=== PATIENT | female | born 1930 | race Caucasian/White ===

== ENCOUNTER 2017-10-07 15:11 | Inpatient (IN) | payer MEDICARE ==
[~2017-10-07] VITALS: Ht 160 cm; Wt 58.1 kg
[2017-10-07] VITALS (11 sets, daily range): BP systolic 78–115; BP diastolic 50–72; PULSE 75–117; RESP 16–20; TEMP 97.9; O2SAT 95–98
[~2017-10-07 15:11] MED LIST: ASPI81 PO; CALC600T34 PO; ENAL20TA81 PO; ERGO50000 PO; GLIP5 PO; NEUR100C PO; OMEP20CA5 PO; PRAV80 PO; TIMO0.255 OU; VICO7.5T PO; Z.0.WALKERFRONT
[2017-10-07] MEDS ORDERED: SODIUM CHLOR 0.9% 1000 ML INJ 1,000 ML IV SCH (16:03)
--- NOTE | 2017-10-07 16:15 | PD ---
HPI Chief Complaint: General Weakness Time Seen by Provider: 15:51 Travel History International Travel<30 days: No Contact w/Intl Traveler<30days: No Traveled to known affect area: No History of Present Illness HPI 86yo F with PMH of HTN, DM, HLD presents to the ED with c/o decline in mental status and physical shape in the last 2 weeks. Daughter said onset seemed sudden and she is not acting like herself. Pt often refuses to eat or drink or walk. Pt seems catatonic and answers questions sometimes. Pt was seen at primary care physician's office on 10/04/17 and pt was started on bactrim as urine had a strong smell and send off to lab for culture. Pt also had diarrhea today. Daughter said she found her on the floor today. PFSH Past Medical History Arthritis: Yes (OSTEOARTHRITIS) Blood Disorders: No Anxiety: No Depression: No Cancer: Yes (SKIN CA-MELANOMA FACE) Cardiovascular Problems: Yes (ANGINA, ANKLE EDEMA) High Cholesterol: Yes Chemotherapy: No COPD: Yes Cerebrovascular Accident: Yes (TIA 1998 , 2004) Diabetes: Yes Diminished Hearing: No Endocrine: Yes Gastrointestinal Disorders: Yes (HIATIAL HERNIA, GASTRITIS) GERD: Yes Glaucoma: Yes Genitourinary: Yes (WEAR PESSARY FOR "DROPPED BLADDER") Hepatitis: No Hiatal Hernia: No Hypertension: Yes Immune Disorder: No Implanted Vascular Access Dvce: Yes Kidney Stones: Yes Musculoskeletal: Yes (OSTEOPOROSIS, "SPINE PROBLEMS") Neurologic: Yes Psychiatric: No Reproductive: No Respiratory: Yes Immunizations Current: Yes Radiation Therapy: No Thyroid Disease: No Menopausal: Yes Past Surgical History Body Medical Devices: PESSARY Gynecologic Surgery: Yes (D&C) Pacemaker: No Other Surgery: Yes (MULTIPLE MELANOMA REMOVALS) Social History Alcohol Use: No Tobacco Use: No Substance Use: No Allergies-Medications (Allergen,Severity, Reaction): Coded Allergies: amoxicillin (Verified Allergy, Unknown, 10/07/17) clavulanic acid (Verified Allergy, Unknown, 10/07/17) metoprolol (Verified Allergy, Unknown, 10/07/17) metronidazole (Verified Allergy, Unknown, 10/07/17) Reported Meds & Prescriptions Reported Meds & Active Scripts Active Reported Bactrim DS (Sulfamethoxazole-Trimethoprim) 800-160 Mg Tab 1 Tab PO BID Simvastatin 40 Mg Tab 40 Mg PO HS Metformin (Metformin HCl) 500 Mg Tab 500 Mg PO BIDPC Glipizide 5 Mg Tab 5 Mg PO DAILY Take 30 minutes before a meal Enalapril (Enalapril Maleate) 20 Mg Tab 20 Mg PO DAILY Review of Systems Except as stated in HPI: all other systems reviewed are Neg Physical Exam Narrative GENERAL: 86yo F in mild distress. SKIN: Focused skin assessment warm/dry. HEAD: Atraumatic. Normocephalic. EYES: Pupils equal and round. No scleral icterus. No injection or drainage. ENT: No nasal bleeding or discharge. NECK: Trachea midline. No JVD. CARDIOVASCULAR: Regular rate and rhythm. No murmur appreciated. RESPIRATORY: No accessory muscle use. Clear to auscultation. Breath sounds equal bilaterally. GASTROINTESTINAL: Abdomen soft, +TTP LLQ. +TTP suprapubic region. MUSCULOSKELETAL: No obvious deformities. No clubbing. No cyanosis. No edema. NEUROLOGICAL: AAOx2. Opens eyes when talked to. Bilateral lower extremity seems weaker than upper extremity. Sensation intact. PSYCHIATRIC: Depressed. Data Data Last Documented VS Vital Signs Date Time Temp Pulse Resp B/P (MAP) Pulse Ox O2 Delivery O2 Flow Rate FiO2 10/07/17 19:20 85 20 10/07/17 19:04 78/50 (59) 95 Room Air 10/07/17 18:46 92 10/07/17 15:19 97.9 Orders Orders Electrocardiogram (10/07/17 16:03) Complete Blood Count With Diff (10/07/17 16:03) Comprehensive Metabolic Panel (10/07/17 16:03) Troponin I (10/07/17 16:03) Thyroid Stimulating Hormone (10/07/17 16:03) Urinalysis - C+S If Indicated (10/07/17 16:03) Ct Brain W/O Iv Contrast(Rout) (10/07/17 16:03) Sodium Chlor 0.9% 1000 Ml Inj (Ns 1000 M (10/07/17 16:03) Ct Abd/Pel W Iv Contrast(Rout) (10/07/17 ) Magnesium (Mg) (10/07/17 16:03) Sodium Chlor 0.9% 1000 Ml Inj (Ns 1000 M (10/07/17 18:00) Iodixanol 320 Inj (Rad Ct) (Visipaque 32 (10/07/17 18:26) Admit Order (Ed Use Only) (10/07/17 18:44) Sodium Chlor 0.9% 1000 Ml Inj (Ns 1000 M (10/07/17 18:45) Ciprofloxacin 400 Mg Premix (Cipro 400 M (10/07/17 19:00) Consult Cardiology (10/07/17 ) Labs Laboratory Tests Test 10/07/17 16:05 10/07/17 16:45 White Blood Count 10.3 TH/MM3 Red Blood Count 4.46 MIL/MM3 Hemoglobin 13.4 GM/DL Hematocrit 40.8 % Mean Corpuscular Volume 91.4 FL Mean Corpuscular Hemoglobin 30.2 PG Mean Corpuscular Hemoglobin Concent 33.0 % Red Cell Distribution Width 12.4 % Platelet Count 259 TH/MM3 Mean Platelet Volume 8.3 FL Neutrophils (%) (Auto) 81.2 % Lymphocytes (%) (Auto) 11.4 % Monocytes (%) (Auto) 6.3 % Eosinophils (%) (Auto) 0.3 % Basophils (%) (Auto) 0.8 % Neutrophils # (Auto) 8.4 TH/MM3 Lymphocytes # (Auto) 1.2 TH/MM3 Monocytes # (Auto) 0.6 TH/MM3 Eosinophils # (Auto) 0.0 TH/MM3 Basophils # (Auto) 0.1 TH/MM3 CBC Comment DIFF FINAL Differential Comment Blood Urea Nitrogen 40 MG/DL Creatinine 1.60 MG/DL Random Glucose 175 MG/DL Total Protein 6.5 GM/DL Albumin 3.0 GM/DL Calcium Level 12.3 MG/DL Magnesium Level 1.7 MG/DL Alkaline Phosphatase 97 U/L Aspartate Amino Transf (AST/SGOT) 30 U/L Alanine Aminotransferase (ALT/SGPT) 21 U/L Total Bilirubin 0.2 MG/DL Sodium Level 135 MEQ/L Potassium Level 4.4 MEQ/L Chloride Level 100 MEQ/L Carbon Dioxide Level 26.0 MEQ/L Anion Gap 9 MEQ/L Estimat Glomerular Filtration Rate 31 ML/MIN Protein Corrected Calcium 12.9 MG/DL Troponin I 0.87 NG/ML Thyroid Stimulating Hormone 3rd Gen 3.100 uIU/ML Urine Collection Type CATH Urine Color YELLOW Urine Turbidity CLEAR Urine pH 6.0 Urine Specific [place] 1.012 Urine Protein NEG mg/dL Urine Glucose (UA) NEG mg/dL Urine Ketones NEG mg/dL Urine Occult Blood NEG Urine Nitrite NEG Urine Bilirubin NEG Urine Leukocyte Esterase NEG Urine WBC 0-2 /hpf Urine Squamous Epithelial Cells 0-5 /hpf Urine Transitional Epithelial Cells 6-8 /hpf Urine Amorphous Sediment FEW Microscopic Urinalysis Comment CATH-CULT NOT IND Urine Collection Time 1645 [facility] Medical Decision Making Medical Screen Exam Complete: Yes Emergency Medical Condition: Yes Interpretation(s) EKG: NSR 90bpm. RBBB. Unchanged from prior. Differential Diagnosis Failure to thrive vs. Dementia vs. delirium vs. dehydration vs. diverticulitis vs. UTI Narrative Course 86yo F here with failure to thrive. Pt seems to have decline rather suddenly 2 weeks ago as per daughter. Daughter said she normally walks with encouragement. However, per previous note, pt seemed to be wheelchair bound. Pt is mildly tachycardic and hypotensive initially. Appears dehydrated, ordered NS IVF. Labs reviewed, no leukocytosis. Protein corrected calcium is 12.9. Pt given NS IVF, will give another liter. Troponin is elevated at 0.87. Pt is not complaining of chest pain or sob. Hemaprompt is positive. BUN/creatinine is elevated at 40/1.60 which is more elevated than baseline. TSH normal. Glucose 175. Normal anion gap. UA negative. I discussed with Dr. Pfeiffer who recommends that she be transfer to [facility] and he will consult. Discussed with Dr. Renae and accepted to his service. CT brain negative. CT a/p showed mild left sided colitis. Pt given cipro IV. Pt is receiving second liter of NS IVF. Critical Care Narrative Aggregate critical care time was 35 minutes. Time to perform other separately billable procedures was not included in the critical care time. My time did not include minutes spent treating any other patients simultaneously or on activities that did not directly contribute to the patient's treatment. The services I provided to this patient were to treat and/or prevent clinically significant deterioration that could result in: cardiovascular collapse or . I provided critical care services requiring my management, as noted below: Chart data review, documentation time, medication orders and management, vital sign assessments/reviewing monitor data, ordering and reviewing lab tests, ordering and interpreting/reviewing x- rays and diagnostic studies, care of the patient and discussion of the patient with the admitting physicians. Diagnosis Primary Impression: Elevated troponin Additional Impressions: Hypercalcemia Colitis Admitting Information Admitting Physician Requests: Admit Kathryn Odonnell DO Oct 07, 2017 16:14
[2017-10-07 16:23] LABS: AUTOMATED NEUTROPHIL # 8.4 TH/MM3 (1.8-7.7); BASOPHIL # 0.1 TH/MM3 (0-0.2); BASOPHIL % 0.8 % (0.0-2.0); EOSINOPHIL % 0.3 % (0.0-4.0); HEMATOCRIT 40.8 % (35.0-46.0); HEMOGLOBIN 13.4 GM/DL (11.6-15.3); LYMPH % 11.4 % (9.0-44.0); LYMPHOCYTE # 1.2 TH/MM3 (1.0-4.8); MEAN CELL VOLUME 91.4 FL (80.0-100.0); MEAN CORPUSCULAR HEMOGLOBIN 30.2 PG (27.0-34.0); MEAN PLATELET VOLUME 8.3 FL (7.0-11.0); MONO % 6.3 % (0.0-8.0); MONOCYTE # 0.6 TH/MM3 (0-0.9); NEUT % 81.2 % (16.0-70.0); PLATELET COUNT 259 TH/MM3 (150-450); RED BLOOD COUNT 4.46 MIL/MM3 (4.00-5.30); RED CELL DISTRIBUTION WIDTH 12.4 % (11.6-17.2); WHITE BLOOD COUNT 10.3 TH/MM3 (4.0-11.0)
[2017-10-07 16:50] LABS: BILIRUBIN, URINE NEG (NEG); BLOOD, URINE NEG (NEG); GLUCOSE,URINE NEG (NEG); KETONE, URINE NEG (NEG); NITRITE,URINE NEG (NEG); URINE LEUKOCYTE ESTERASE NEG (NEG)
[2017-10-07 16:53] LABS: URINE COLOR YELLOW (YELLW/STRAW)
[2017-10-07 16:55] LABS: AMORPHOUS SEDIMENT, URINE FEW; SQUAMOUS EPITHELIAL CELL URINE 0-5 /hpf (0-5); WBC, URINE 0-2 /hpf (0-5)
[2017-10-07 17:17] LABS: CALCIUM 12.3 MG/DL (8.5-10.1); CREATININE 1.6 MG/DL (0.50-1.00); MAGNESIUM 1.7 MG/DL (1.5-2.5); TOTAL BILIRUBIN ADULT 0.2 MG/DL (0.2-1.0); TOTAL PROTEIN 6.5 GM/DL (6.4-8.2)
[2017-10-07 17:19] LABS: CALCIUM-PROTEIN CORRECTED 12.9 MG/DL (8.5-10.1)
[2017-10-07 17:20] LABS: TROPONIN I 0.87 NG/ML (0.02-0.05)
[2017-10-07] MEDS ORDERED: SODIUM CHLOR 0.9% 1000 ML INJ 1,000 ML IV ONE ×2 (18:00→18:45)
[2017-10-07] MEDS ORDERED: IODIXANOL 320 MG/ML 10 ML VIAL (for Rad CT) IVCONTRAST ONE (18:26)
--- NOTE | 2017-10-07 18:31 | RADRPT ---
EXAM DATE/TIME: 10/07/2017 18:07 [facility] COMPARISON: No previous studies available for comparison. INDICATIONS : Weakness, poor appetite, altered mental status. RADIATION DOSE: 67.18 CTDIvol (mGy) ; Tabletop CT Head MEDICAL HISTORY : Cardiovascular disease. Hypercholesterolemia. Hypertension.CVA, Glaucoma, Hiatial hernia, gastritis, dropped bladder, osteoarthritis, melanoma, TIA SURGICAL HISTORY : Non listed ENCOUNTER: Initial ACUITY: 1 day PAIN SCALE: 0/10 LOCATION: cranial TECHNIQUE: Multiple contiguous axial images were obtained of the head. Using automated exposure control and adj ustment of the mA and/or kV according to patient size, radiation dose was kept as low as reasonably a chievable to obtain optimal diagnostic quality images. DICOM format image data is available electro nically for review and comparison. FINDINGS: CEREBRUM: The ventricles are normal for age. No evidence of midline shift, mass lesion, hemorrhage or acute in farction. No extra-axial fluid collections are seen. Chronic low attenuation in the periventricular white matter again noted. POSTERIOR FOSSA: The cerebellum and brainstem are intact. The 4th ventricle is midline. The cerebellopontine angle i s unremarkable. EXTRACRANIAL: There is debris in the right sphenoid air cell. SKULL: The calvaria is intact. No evidence of skull fracture. CONCLUSION: No acute intracranial abnormality. Chronic white matter changes and mild sinus disease. Yasir Sarmiento MD on October 07, 2017 at 18:28 Board Certified Radiologist. This report was verified electronically.
--- NOTE | 2017-10-07 18:43 | RADRPT ---
EXAM DATE/TIME: 10/07/2017 18:10 [facility] COMPARISON: No previous studies available for comparison. INDICATIONS : Abdominal pain, poor appetite,weakness for a week. IV CONTRAST: 50 cc Visipaque (iodixanol) IV ORAL CONTRAST: No oral contrast ingested. RADIATION DOSE: 8.89 CTDIvol (mGy) MEDICAL HISTORY : Cardiovascular disease. Hypercholesterolemia. Hypertension.Glaucoma, CVA, Hiatial hernia, gastritis, dropped bladder, osteoarthritis, melanoma, TIA SURGICAL HISTORY : None. None listed. ENCOUNTER: Initial ACUITY: 1 week PAIN SCALE: 5/10 LOCATION: Left lower quadrant TECHNIQUE: Volumetric scanning of the abdomen and pelvis was performed. Using automated exposure control and ad justment of the mA and/or kV according to patient size, radiation dose was kept as low as reasonably achievable to obtain optimal diagnostic quality images. DICOM format image data is available electro nically for review and comparison. FINDINGS: LOWER LUNGS: The visualized lower lungs are clear. LIVER: Homogeneous density without lesion. There is no dilation of the biliary tree. No calcified gallston es. SPLEEN: Normal size without lesion. PANCREAS: Within normal limits. KIDNEYS: There are a few small cysts of each kidney measuring up to 12 mm in size. No hydronephrosis. ADRENAL GLANDS: Within normal limits. VASCULAR: There is no aortic aneurysm. BOWEL/MESENTERY: There is a large hiatal hernia. There is mild wall thickening of the descending and sigmoid portions of the colon. No high-grade inflammatory changes are demonstrated. There are some scattered diverticu la but some of the wall thickening is not associated with diverticulosis. ABDOMINAL WALL: Within normal limits. RETROPERITONEUM: There is no lymphadenopathy. BLADDER: No wall thickening or mass. REPRODUCTIVE: Within normal limits. INGUINAL: There is no lymphadenopathy or hernia. MUSCULOSKELETAL: No acute bony abnormality demonstrated. CONCLUSION: 1. CT findings suggest mild left-sided colitis in the proper clinical setting, presumably infectious or inflammatory. No abscess, perforation or obstruction. 2. Large hiatal hernia. Yasir Sarmiento MD on October 07, 2017 at 18:38 Board Certified Radiologist. This report was verified electronically.
[2017-10-07] MEDS ORDERED: CIPROFLOXACIN 400 MG PREMIX 200 ML IV ONE (19:00)
[2017-10-07] MEDS ORDERED: BISACODYL 10 MG SUPP RECTAL PRN (19:30)
[2017-10-07] MEDS ORDERED: ONDANSETRON HCL 4 MG/2 ML VIAL IVP PRN (19:30)
[2017-10-07] MEDS ORDERED: ACETAMINOPHEN 325 MG TAB PO PRN (19:30)
[2017-10-07] MEDS ORDERED: MORPHINE SULFATE 2 MG/ML INJ IV PUSH PRN (19:30)
[2017-10-07] MEDS ORDERED: LACTULOSE SYRUP 20 GM/30 ML CUP PO PRN (19:30)
[2017-10-07] MEDS ORDERED: MAGNESIUM HYDROXIDE SUSP 30 ML CUP PO PRN (19:30)
[2017-10-07] MEDS ORDERED: SENNOSIDES 8.6 MG TAB PO PRN (19:30)
[2017-10-07] MEDS ORDERED: NALOXONE HCL 0.4 MG/ML AMP IV PUSH PRN (19:30)
[2017-10-07] MEDS ORDERED: SODIUM CHLORIDE 0.9% FLUSH 10 ML FLUSH IV FLUSH PRN (19:30)
--- NOTE | 2017-10-07 19:45 | HHI.HP ---
HPI Service [facility] Hospitalists Primary Care Physician Nikolas Soriano MD Admission Diagnosis Elevated troponin, hypercalcemia Chief Complaint: 2 weeks progressive lethargy ,weakness poor appetite Travel History International Travel<30 Days: No Contact w/Intl Traveler <30 Da: No Traveled to Known Affected Are: No History of Present Illness 86yo F with PMH of HTN, DM, HLD presents to the ED with c/o decline in mental status and physical shape in the last 2 weeks. Daughter said onset seemed sudden and she is not acting like herself. Pt often refuses to eat or drink or walk. Pt seems catatonic and answers questions sometimes. Daughter does say that approx 2 weeks ago did complain of mid back pain,denies chest pain ,SOB . Pt was seen at primary care physician's office on 10/04/17 and pt was started on bactrim as urine had a strong smell and send off to lab for culture. Pt also had diarrhea today. Daughter said she found her on the floor today. In er had ct abd showed mild colitis and did have evidence significant dehydration with increase calcium and bun /cr but also had positive troponin level and did have positive guiac . Will be admitted to [facility] cardiac follow up may also need GI. Review of Systems ROS Limitations: Altered Mental Status Constitutional: COMPLAINS OF: Fatigue, Change in appetite Gastrointestinal: COMPLAINS OF: Diarrhea Past Family Social History Past Medical History djd,melanoma removed from face angina hx edema hypertension TIA 99,2004 dm increase lipids COPD hiatal hernia pessary for drop bladder Past Surgical History pessary Reported Medications Glipizide 5 Mg Tab 5 Mg PO BIDHYPOGLYCEMIC 30 Days Reported Calcium 600 Mg Tab 600 Mg PO BID Aspirin 81 Mg Tab 81 Mg PO DAILY Vicodin Es 7.5/750 (Acetaminophen/Hydrocodone Bitart) 750 Mg/7.5 Mg Tab 1 Tab PO QID FOR PAIN Neurontin (Gabapentin) 100 Mg Cap 100 Mg PO TIDPRN Vitamin D / Drisdol 50,000 Units (Ergocalciferol) 50,000 Units Cap 1 Cap PO WEEKLY Timoptic (Timolol Maleate) 0.25 % Soln 1 Drop OU BID Prilosec 20 mg (Omeprazole) 20 Mg Capcr 20 Mg PO DAILY Vasotec (Enalapril Maleate) 20 Allergies: Coded Allergies: amoxicillin (Verified Allergy, Unknown, 10/07/17) clavulanic acid (Verified Allergy, Unknown, 10/07/17) metoprolol (Verified Allergy, Unknown, 10/07/17) metronidazole (Verified Allergy, Unknown, 10/07/17) Family History sister colon cancer Social History NS,ND Physical Exam Vital Signs Vital Signs Date Time Temp Pulse Resp B/P (MAP) Pulse Ox O2 Delivery O2 Flow Rate FiO2 10/07/17 18:46 86 16 84/52 (63) Room Air 92 10/07/17 18:01 90 16 107/72 (84) 95 10/07/17 15:19 97.9 117 18 97/57 (70) 98 Physical Exam GENERAL: no apparent distress. frail clinical dehydrated poor skin turgor SKIN: No rashes, ecchymoses or lesions. HEAD: Atraumatic. Normocephalic. No temporal or scalp tenderness. EYES: Pupils equal round and reactive. Extraocular motions intact. No scleral icterus. No injection or drainage. ENT: Nose without bleeding, purulent drainage or septal hematoma. Throat without erythema, tonsillar hypertrophy or exudate. Uvula midline. Airway patent. NECK: Trachea midline. No JVD or lymphadenopathy. Supple, nontender, no meningeal signs. CARDIOVASCULAR: Regular rate and rhythm without murmurs, gallops, or rubs. RESPIRATORY: Clear to auscultation. Breath sounds equal bilaterally. No wheezes , rales, or rhonchi. GASTROINTESTINAL: Abdomen soft, non-tender, nondistended. No hepato-splenomegaly , or palpable masses. No guarding.positive stool MUSCULOSKELETAL: Extremities without clubbing, cyanosis, or edema. No joint tenderness, effusion, or edema noted. No calf tenderness. Negative Homans sign bilaterally. NEUROLOGICAL: Awake shakes head yes or no. Cranial nerves II through XII intact. Motor and sensory grossly within normal limits. 3 out of 5 muscle strength in all muscle groups. Normal speech. Laboratory Laboratory Tests Test 10/07/17 16:05 10/07/17 16:45 White Blood Count 10.3 Red Blood Count 4.46 Hemoglobin 13.4 Hematocrit 40.8 Mean Corpuscular Volume 91.4 Mean Corpuscular Hemoglobin 30.2 Mean Corpuscular Hemoglobin Concent 33.0 Red Cell Distribution Width 12.4 Platelet Count 259 Mean Platelet Volume 8.3 Neutrophils (%) (Auto) 81.2 Lymphocytes (%) (Auto) 11.4 Monocytes (%) (Auto) 6.3 Eosinophils (%) (Auto) 0.3 Basophils (%) (Auto) 0.8 Neutrophils # (Auto) 8.4 Lymphocytes # (Auto) 1.2 Monocytes # (Auto) 0.6 Eosinophils # (Auto) 0.0 Basophils # (Auto) 0.1 CBC Comment DIFF FINAL Differential Comment Blood Urea Nitrogen 40 Creatinine 1.60 Random Glucose 175 Total Protein 6.5 Albumin 3.0 Calcium Level 12.3 Magnesium Level 1.7 Alkaline Phosphatase 97 Aspartate Amino Transf (AST/SGOT) 30 Alanine Aminotransferase (ALT/SGPT) 21 Total Bilirubin 0.2 Sodium Level 135 Potassium Level 4.4 Chloride Level 100 Carbon Dioxide Level 26.0 Anion Gap 9 Estimat Glomerular Filtration Rate 31 Protein Corrected Calcium 12.9 Troponin I 0.87 Thyroid Stimulating Hormone 3rd Gen 3.100 Urine Collection Type CATH Urine Color YELLOW Urine Turbidity CLEAR Urine pH 6.0 Urine Specific [place] 1.012 Urine Protein NEG Urine Glucose (UA) NEG Urine Ketones NEG Urine Occult Blood NEG Urine Nitrite NEG Urine Bilirubin NEG Urine Leukocyte Esterase NEG Urine WBC 0-2 Urine Squamous Epithelial Cells 0-5 Urine Transitional Epithelial Cells 6-8 Urine Amorphous Sediment FEW Microscopic Urinalysis Comment CATH-CULT NOT IND Urine Collection Time 1645 Result Diagram: 10/07/17 1605 10/07/17 1605 Imaging Last [address] 10/07/17 1603 Signed Impressions: Service Date/Time: Saturday, October 07, 2017 18:07 - CONCLUSION: No acute intracranial abnormality. Chronic white matter changes and mild sinus disease. Yasir Sarmiento MD Abdomen/Pelvis CT 10/07/17 0000 Signed Impressions: Service Date/Time: Saturday, October 07, 2017 18:10 - CONCLUSION: 1. CT findings suggest mild left-sided colitis in the proper clinical setting, presumably infectious or inflammatory. No abscess, perforation or obstruction. 2. Large hiatal hernia. Yasir Sarmiento MD Course in er started on IV fluids and cipro Caprini VTE Risk Assessment Caprini VTE Risk Assessment: Mod/High Risk (score >= 2) Caprini Risk Assessment Model Point Value = 1 Point Value = 2 Point Value = 3 Point Value = 5 Age 41-60 Minor surgery BMI > 25 kg/m2 Swollen legs Varicose veins or History of unexplained or recurrent spontaneous Oral contraceptives or hormone replacement Sepsis (< 1 month) Serious lung disease, including pneumonia (< 1 month) Abnormal pulmonary function Acute myocardial infarction Congestive heart failure (< 1 month) History of inflammatory bowel disease Medical patient at bed rest Age 61-74 Arthroscopic surgery Major open surgery (> 45 min) Laparoscopic surgery (> 45 min) Malignancy Confined to bed (> 72 hours) Immobilizing plaster cast Central venous access Age >= 75 History of VTE Family history of VTE Factor V Leiden Prothrombin [id number] Lupus anticoagulant Anticardiolipin antibodies Elevated serum homocysteine Heparin-induced thrombocytopenia Other congenital or acquired thrombophilia Stroke (< 1 month) Elective arthroplasty Hip, pelvis, or leg fracture Acute spinal cord injury (< 1 month) Prophylaxis Regimen Total Risk Factor Score Risk Level Prophylaxis Regimen 0-1 Low Early ambulation 2 Moderate Order ONE of the following: *Sequential Compression Device (SCD) *Heparin 5000 units SQ BID 3-4 Higher Order ONE of the following medications: *Heparin 5000 units SQ TID *Enoxaparin/Lovenox 40 mg SQ daily (WT < 150 kg, CrCl > 30 mL/min) *Enoxaparin/Lovenox 30 mg SQ daily (WT < 150 kg, CrCl > 10-29 mL/min) *Enoxaparin/Lovenox 30 mg SQ BID (WT < 150 kg, CrCl > 30 mL/min) AND/OR *Sequential Compression Device (SCD) 5 or more Highest Order ONE of the following medications: *Heparin 5000 units SQ TID (Preferred with Epidurals) *Enoxaparin/Lovenox 40 mg SQ daily (WT < 150 kg, CrCl > 30 mL/min) *Enoxaparin/Lovenox 30 mg SQ daily (WT < 150 kg, CrCl > 10-29 mL/min) *Enoxaparin/Lovenox 30 mg SQ BID (WT < 150 kg, CrCl > 30 mL/min) AND *Sequential Compression Device (SCD) Assessment and Plan Problem List: (1) Dehydration ICD Codes: E86.0 - Dehydration Status: Acute Plan: start IV fluid with follow up labs (2) Elevated troponin ICD Codes: R74.8 - Abnormal levels of other serum enzymes Status: Acute Plan: recheck with ekg consult cardiology (3) Hypercalcemia ICD Codes: E83.52 - Hypercalcemia Status: Acute Plan: IV fluids and recheck labs (4) Colitis ICD Codes: K52.9 - Noninfective gastroenteritis and colitis, unspecified Status: Acute Plan: will start cipro IV allergic to flagyl Assessment and Plan further plan as case develops Code Status full Discussed Condition With patient and family Physician Certification 2 Midnight Certification Type: Admission for Inpatient Services Order for Inpatient Services The services are ordered in accordance with Medicare regulations or non- Medicare payer requirements, as applicable. In the case of services not specified as inpatient-only, they are appropriately provided as inpatient services in accordance with the 2-midnight benchmark. Estimated LOS (days): 3 3 days is the estimated time the patient will need to remain in the hospital, assuming treatment plan goals are met and no additional complications. Post-Hospital Plan: Not yet determined Juan Carlos Tamayo MD Oct 07, 2017 19:45
[2017-10-07] MEDS ORDERED: DOCUSATE SODIUM 50 MG/SENNA 8.6 MG TAB PO SCH (21:00)
[2017-10-07] MEDS ORDERED: DEXTROSE 50% IN WATER 50 ML VIAL(D50) IV ONE (21:30)
[2017-10-07] MEDS: SODIUM CHLOR 0.9% 1000 ML INJ 1,000 ML IV SCH (22:16)
[2017-10-07] MEDS ORDERED: METF500T PO (23:02)
[2017-10-07] MEDS ORDERED: ENAL20TA PO (23:02)
[2017-10-07] MEDS ORDERED: BACT800T5 PO (23:02)
[2017-10-07] MEDS ORDERED: SIMV40TA PO (23:02)
[2017-10-07] MEDS ORDERED: GLIP5TAB8 PO (23:02)
[2017-10-08] VITALS (14 sets, daily range): BP systolic 116–134; BP diastolic 58–85; PULSE 80–119; RESP 20–22; TEMP 98–98.4; O2SAT 95–97
[2017-10-08] MEDS: SODIUM CHLOR 0.9% 1000 ML INJ 1,000 ML IV SCH ×2 (05:25→18:25)
[2017-10-08] MEDS: TIMOLOL MALEATE 0.25% OPHT SOLN 5 ML BTL EACH EYE SCH ×2 (09:00→19:49)
--- NOTE | 2017-10-08 09:00 | PD.CONS ---
HPI Consult Requested By Primary Care Physician Nikolas Soriano MD History of Present Illness 86-year-old female with a past medical history of DM, HTN, HLD who presented with altered mental status. The patient's chief complaint is "I feel confused" . She has been having diarrhea. She was found to have signs of severe dehydration with elevated creatinine and calcium levels. Incidentally she was found to have elevated troponins of 0.87, 0.77. EKG with right bundle branch block, no significant change from previous. The patient denies any chest pain or problems breathing. (Andrea Kirk) Review of Systems Negative except as stated in history of present illness (Andrea Kirk) Past Family Social History Allergies: Coded Allergies: amoxicillin (Verified Allergy, Unknown, 10/07/17) clavulanic acid (Verified Allergy, Unknown, 10/07/17) metoprolol (Verified Allergy, Unknown, 10/07/17) metronidazole (Verified Allergy, Unknown, 10/07/17) Past Medical History Hypertension Hyperlipidemia Diabetes mellitus Degenerative joint disease TIAs COPD Past Surgical History pessary for dropped bladder Reported Medications Reported Meds & Active Scripts Active Reported Bactrim DS (Sulfamethoxazole-Trimethoprim) 800-160 Mg Tab 1 Tab PO BID Simvastatin 40 Mg Tab 40 Mg PO HS Metformin (Metformin HCl) 500 Mg Tab 500 Mg PO BIDPC Glipizide 5 Mg Tab 5 Mg PO DAILY Take 30 minutes before a meal Enalapril (Enalapril Maleate) 20 Mg Tab 20 Mg PO DAILY Active Ordered Medications Current Medications Medications (Trade) Dose Ordered Sig/Giovanni Route Start Time Stop Time Status Last Admin Sodium Chloride 1,000 ml @ 100 mls/hr Q10H IV 10/07/17 19:25 10/07/17 22:16 (NS Flush) 2 ml UNSCH PRN IV FLUSH 10/07/17 19:30 (NS Flush) 2 ml BID IV FLUSH 10/07/17 21:00 (Tylenol) 650 mg Q4H PRN PO 10/07/17 19:30 (Zofran Inj) 4 mg Q6H PRN IVP 10/07/17 19:30 (Morphine Inj) 2 mg Q8HR PRN IV PUSH 10/07/17 19:30 (Narcan Inj) 0.4 mg UNSCH PRN IV PUSH 10/07/17 19:30 (Teresa-Colace) 1 tab BID PO 10/07/17 21:00 (Milk Of Magnesia Liq) 30 ml Q12H PRN PO 10/07/17 19:30 (Senokot) 17.2 mg Q12H PRN PO 10/07/17 19:30 (Dulcolax Supp) 10 mg DAILY PRN RECTAL 10/07/17 19:30 (Lactulose Liq) 30 ml DAILY PRN PO 10/07/17 19:30 (Aspirin Chew) 81 mg DAILY PO 10/08/17 09:00 (Pravachol) 80 mg HS PO 10/07/17 21:00 (Timoptic 0.25% Opth Soln) 1 drop BID EACH EYE 10/07/17 21:00 Ciprofloxacin/ Dextrose 200 ml @ 200 mls/hr DAILY@2000 IV 10/08/17 20:00 (Protonix Inj) 40 mg Q24H IV PUSH 10/07/17 20:00 Family History sister colon cancer Social History NS,ND (Andrea Kirk) Physical Exam Vital Signs Vital Signs Date Time Temp Pulse Resp B/P (MAP) Pulse Ox O2 Delivery O2 Flow Rate FiO2 10/08/17 06:00 81 10/08/17 05:00 84 10/08/17 04:00 Nasal Cannula 2.00 10/08/17 04:00 98.0 81 20 124/58 (80) 96 10/08/17 04:00 81 10/08/17 03:00 96 10/08/17 02:00 89 10/08/17 01:00 90 10/08/17 00:00 98.3 80 22 122/72 (89) 95 10/08/17 00:00 80 10/08/17 00:00 Nasal Cannula 2.00 10/07/17 22:49 82 20 93/57 (69) 98 Nasal Cannula 2.00 10/07/17 21:59 84 20 115/62 (79) 98 10/07/17 21:30 75 20 84/59 (67) 98 10/07/17 21:00 76 20 100/67 (78) 98 Nasal Cannula 2.00 10/07/17 20:30 85 20 107/65 (79) 98 Nasal Cannula 2.00 10/07/17 19:52 88 20 110/67 (81) 98 Nasal Cannula 2.00 10/07/17 19:23 90 16 87/50 (62) 10/07/17 19:20 85 20 10/07/17 19:04 90 18 78/50 (59) 95 Room Air 10/07/17 18:46 86 16 84/52 (63) Room Air 92 10/07/17 18:01 90 16 107/72 (84) 95 10/07/17 15:19 97.9 117 18 97/57 (70) 98 Physical Exam GENERAL: Well-developed well-nourished. In no acute distress. NECK: No carotid bruits. No JVD. CARDIOVASCULAR: Regular rate and rhythm. No murmur appreciated. RESPIRATORY: No accessory muscle use. Clear to auscultation. Breath sounds equal bilaterally. MUSCULOSKELETAL: No clubbing or cyanosis. No edema. NEUROLOGICAL: Awake and alert, but a bit confused. Normal speech. Laboratory Laboratory Tests Test 10/07/17 16:05 10/07/17 16:45 10/07/17 22:00 White Blood Count 10.3 Red Blood Count 4.46 Hemoglobin 13.4 Hematocrit 40.8 Mean Corpuscular Volume 91.4 Mean Corpuscular Hemoglobin 30.2 Mean Corpuscular Hemoglobin Concent 33.0 Red Cell Distribution Width 12.4 Platelet Count 259 Mean Platelet Volume 8.3 Neutrophils (%) (Auto) 81.2 Lymphocytes (%) (Auto) 11.4 Monocytes (%) (Auto) 6.3 Eosinophils (%) (Auto) 0.3 Basophils (%) (Auto) 0.8 Neutrophils # (Auto) 8.4 Lymphocytes # (Auto) 1.2 Monocytes # (Auto) 0.6 Eosinophils # (Auto) 0.0 Basophils # (Auto) 0.1 CBC Comment DIFF FINAL Differential Comment Blood Urea Nitrogen 40 Creatinine 1.60 Random Glucose 175 Total Protein 6.5 Albumin 3.0 Calcium Level 12.3 Magnesium Level 1.7 Alkaline Phosphatase 97 Aspartate Amino Transf (AST/SGOT) 30 Alanine Aminotransferase (ALT/SGPT) 21 Total Bilirubin 0.2 Sodium Level 135 Potassium Level 4.4 Chloride Level 100 Carbon Dioxide Level 26.0 Anion Gap 9 Estimat Glomerular Filtration Rate 31 Protein Corrected Calcium 12.9 Troponin I 0.87 0.77 Thyroid Stimulating Hormone 3rd Gen 3.100 Urine Collection Type CATH Urine Color YELLOW Urine Turbidity CLEAR Urine pH 6.0 Urine Specific [place] 1.012 Urine Protein NEG Urine Glucose (UA) NEG Urine Ketones NEG Urine Occult Blood NEG Urine Nitrite NEG Urine Bilirubin NEG Urine Leukocyte Esterase NEG Urine WBC 0-2 Urine Squamous Epithelial Cells 0-5 Urine Transitional Epithelial Cells 6-8 Urine Amorphous Sediment FEW Microscopic Urinalysis Comment CATH-CULT NOT IND Urine Collection Time 1645 (Andrea Kirk) Result Diagram: 10/07/17 1605 10/07/17 1605 Imaging Last Impressions Head CT 10/07/17 1603 Signed Impressions: Service Date/Time: Saturday, October 07, 2017 18:07 - CONCLUSION: No acute intracranial abnormality. Chronic white matter changes and mild sinus disease. Yasir Sarmiento MD Abdomen/Pelvis CT 10/07/17 0000 Signed Impressions: Service Date/Time: Saturday, October 07, 2017 18:10 - CONCLUSION: 1. CT findings suggest mild left-sided colitis in the proper clinical setting, presumably infectious or inflammatory. No abscess, perforation or obstruction. 2. Large hiatal hernia. Yasir Sarmiento MD (Andrea Kirk) Assessment and Plan Assessment and Plan 86-year-old female with a past medical history of DM, HTN, HLD who presented with altered mental status. The patient's chief complaint is "I feel confused" . She has been having diarrhea. She was found to have signs of severe dehydration with elevated creatinine and calcium levels. Incidentally she was found to have elevated troponins of 0.87, 0.77. EKG with right bundle branch block, no significant change from previous. The patient denies any chest pain or problems breathing. Elevated troponin in the setting of severe dehydration from diarrhea: EKG with no acute changes. No complaints of chest pain. We will continue to follow. Hypertension: Enalapril was held and BP is improving. Dehydration/YOLY/hypercalcemia: Receiving IVF. Hyperlipidemia: Continue pravastatin. (Andrea Kirk) Assessment and Plan trop likely due to CKD no ischemic workup will sign off (Wyatt Pfeiffer MD) Andrea Kirk Oct 08, 2017 09:00 Wyatt Pfeiffer MD Oct 08, 2017 13:58
[2017-10-08] MEDS: ASPIRIN 81 MG CHEW TAB PO SCH (09:02)
[2017-10-08] MEDS: SODIUM CHLORIDE 0.9% FLUSH 10 ML FLUSH IV FLUSH SCH ×2 (09:02→19:50)
--- NOTE | 2017-10-08 10:00 | HHI.PR ---
Subjective Remarks pleasant. no cp or abdomen pain. Objective Vitals nad mild disoriented heart reg lung cta abd s/nt/nabs ext no edema Vital Signs Date Time Temp Pulse Resp B/P (MAP) Pulse Ox O2 Delivery O2 Flow Rate FiO2 10/08/17 06:00 81 10/08/17 05:00 84 10/08/17 04:00 Nasal Cannula 2.00 10/08/17 04:00 98.0 81 20 124/58 (80) 96 10/08/17 04:00 81 10/08/17 03:00 96 10/08/17 02:00 89 10/08/17 01:00 90 10/08/17 00:00 98.3 80 22 122/72 (89) 95 10/08/17 00:00 80 10/08/17 00:00 Nasal Cannula 2.00 10/07/17 22:49 82 20 93/57 (69) 98 Nasal Cannula 2.00 10/07/17 21:59 84 20 115/62 (79) 98 10/07/17 21:30 75 20 84/59 (67) 98 10/07/17 21:00 76 20 100/67 (78) 98 Nasal Cannula 2.00 10/07/17 20:30 85 20 107/65 (79) 98 Nasal Cannula 2.00 10/07/17 19:52 88 20 110/67 (81) 98 Nasal Cannula 2.00 10/07/17 19:23 90 16 87/50 (62) 10/07/17 19:20 85 20 10/07/17 19:04 90 18 78/50 (59) 95 Room Air 10/07/17 18:46 86 16 84/52 (63) Room Air 92 10/07/17 18:01 90 16 107/72 (84) 95 10/07/17 15:19 97.9 117 18 97/57 (70) 98 Result Diagram: 10/07/17 1605 10/07/17 1605 Imaging Last [address] 10/07/17 1603 Signed Impressions: Service Date/Time: Saturday, October 07, 2017 18:07 - CONCLUSION: No acute intracranial abnormality. Chronic white matter changes and mild sinus disease. Yasir Sarmiento MD Abdomen/Pelvis CT 10/07/17 0000 Signed Impressions: Service Date/Time: Saturday, October 07, 2017 18:10 - CONCLUSION: 1. CT findings suggest mild left-sided colitis in the proper clinical setting, presumably infectious or inflammatory. No abscess, perforation or obstruction. 2. Large hiatal hernia. Yasir Sarmiento MD A/P Problem List: (1) Delirium ICD Codes: R41.0 - Disorientation, unspecified Status: Acute Plan: 1. acute delirium/general weakness/hypotension. 2. hypercalcemia 3. dehydration 4. elevated troponin. likely related to yoly/dehydration 5. left colitis on CT 6. yoly..?dehydration vs recent bactrim use. 7. dm gentle ivf and monitor bun/cr/ca cont abx initiated in ED for colitis.f/u stool cx/cdiff already evaluated by cardiology this AM. PT evaluation. dvt prophylaxis. (2) YOLY (acute kidney injury) ICD Codes: N17.9 - Acute kidney failure, unspecified Status: Acute (3) Dehydration ICD Codes: E86.0 - Dehydration Status: Acute (4) Elevated troponin ICD Codes: R74.8 - Abnormal levels of other serum enzymes Status: Acute (5) Hypercalcemia ICD Codes: E83.52 - Hypercalcemia Status: Acute (6) Colitis ICD Codes: K52.9 - Noninfective gastroenteritis and colitis, unspecified Status: Acute (7) Diabetes ICD Codes: E11.9 - Type 2 diabetes mellitus without complications Status: Chronic Reg Irizarry MD Oct 08, 2017 10:00
[2017-10-08] MEDS ORDERED: DEXTROSE 50% IN WATER 50 ML VIAL(D50) IV PUSH PRN (10:15)
[2017-10-08] MEDS ORDERED: GLUCAGON 1 MG/ML VIAL OTHER PRN (10:15)
[2017-10-08] MEDS: INSULIN ASPART SUPPLEMENTAL SCALE SQ SCH ×3 (12:00→19:51)
--- NOTE | 2017-10-08 12:16 | EKG ---
Date Performed: 10/08/2017 Time Performed: 06:04:02 PTAGE: 86 years EKG: Sinus rhythm with borderline 1st degree A-V block Right axis deviation Right ventricular hypertrophy Anterior T w ave changes are nonspecific Abnormal ECG PREVIOUS TRACING 10/07/17 Since the prior tracing, there has been no significant change DOCTOR: Primitivo Ovalle Interpretating Date/Time 10/08/2017 12:14:24
--- NOTE | 2017-10-08 12:16 | EKG ---
Date Performed: 10/07/2017 Time Performed: 17:27:02 PTAGE: 86 years EKG: Sinus rhythm RIGHT BUNDLE BRANCH BLOCK ABNORMAL ECG PREVIOUS TRACING : 02/03/2016 14.01 Since the prior tracing, there has been no significant lopez DOCTOR: Primitivo Ovalle Interpretating Date/Time 10/08/2017 12:14:01
[2017-10-08 14:58] LABS: ALBUMIN 2.8 GM/DL (3.4-5.0); ALT (GPT) 21 U/L (10-53); AST (GOT) 48 U/L (15-37); BICARBONATE 22.9 MEQ/L (21.0-32.0); CALCIUM 11.1 MG/DL (8.5-10.1); CHLORIDE 113 MEQ/L (98-107); CREATININE 1.09 MG/DL (0.50-1.00); GLOMERULAR FILTRATION RATE 48 ML/MIN (>89); GLUCOSE,RANDOM 86 MG/DL (74-106); SODIUM (NA) 142 MEQ/L (136-145)
[2017-10-08 15:01] LABS: ALKALINE PHOSPHATASE 90 U/L (45-117); TOTAL BILIRUBIN ADULT 0.4 MG/DL (0.2-1.0); TOTAL PROTEIN 5.9 GM/DL (6.4-8.2)
[2017-10-08 15:20] LABS: BLOOD UREA NITROGEN 19 MG/DL (7-18)
[2017-10-08 15:23] LABS: TROPONIN I 0.68 NG/ML (0.02-0.05)
[2017-10-08 15:24] LABS: AUTOMATED NEUTROPHIL # 5.8 TH/MM3 (1.8-7.7); BASOPHIL % 0.6 % (0.0-2.0); EOSINOPHIL # 0.1 TH/MM3 (0-0.4); EOSINOPHIL % 1.3 % (0.0-4.0); HEMATOCRIT 38.4 % (35.0-46.0); HEMOGLOBIN 12.9 GM/DL (11.6-15.3); LYMPHOCYTE # 1.4 TH/MM3 (1.0-4.8); MEAN CORPUSCULAR HEMOGLOBIN 31.2 PG (27.0-34.0); MEAN CORPUSCULAR HGB CONC 33.5 % (32.0-36.0); MEAN PLATELET VOLUME 8.9 FL (7.0-11.0); MONO % 7.5 % (0.0-8.0); MONOCYTE # 0.6 TH/MM3 (0-0.9); NEUT % 72.6 % (16.0-70.0); PLATELET COUNT 231 TH/MM3 (150-450); RED BLOOD COUNT 4.12 MIL/MM3 (4.00-5.30); RED CELL DISTRIBUTION WIDTH 13.4 % (11.6-17.2)
[2017-10-08] MEDS: PRAVASTATIN SOD 80 MG TAB PO SCH ×2 (19:48→20:41)
[2017-10-08] MEDS: CIPROFLOXACIN 400 MG PREMIX 200 ML IV SCH (19:48)
[2017-10-08] MEDS: PANTOPRAZOLE SODIUM 40 MG VIAL IV PUSH SCH ×2 (19:49→20:00)
[2017-10-08] MEDS ORDERED: LORazepam 2 MG/ML VIAL IV PUSH PRN (21:45)
[2017-10-09] VITALS (25 sets, daily range): BP systolic 90–146; BP diastolic 52–90; PULSE 58–104; RESP 16–19; TEMP 97.2–98.7; O2SAT 97–100
[2017-10-09] MEDS: SODIUM CHLOR 0.9% 1000 ML INJ 1,000 ML IV SCH ×3 (01:25→21:39)
[2017-10-09 06:59] LABS: BICARBONATE 21.8 MEQ/L (21.0-32.0); CALCIUM 11.2 MG/DL (8.5-10.1); CREATININE 0.96 MG/DL (0.50-1.00)
[2017-10-09] MEDS: INSULIN ASPART SUPPLEMENTAL SCALE SQ SCH ×4 (08:00→21:39)
--- NOTE | 2017-10-09 08:54 | HHI.PR ---
Subjective Remarks Pt very lethargic this morning Pt received Ativan IV at 2100 last night and nurse reports that the pt has been very difficult to keep awake this morning. She will wake up but then quickly goes back to sleep Objective Vitals Vital Signs Date Time Temp Pulse Resp B/P (MAP) Pulse Ox O2 Delivery O2 Flow Rate FiO2 10/09/17 06:00 66 10/09/17 05:00 70 10/09/17 04:00 78 10/09/17 04:00 Nasal Cannula 2.00 10/09/17 04:00 98.2 78 18 112/82 (92) 98 10/09/17 03:00 80 10/09/17 02:00 81 10/09/17 01:00 85 10/09/17 00:00 Nasal Cannula 2.00 10/09/17 00:00 98.2 84 18 90/57 (68) 99 10/09/17 00:00 84 10/08/17 23:00 89 10/08/17 22:00 100 10/08/17 21:00 119 10/08/17 20:00 98.0 103 20 116/69 (85) 96 10/08/17 20:00 103 10/08/17 20:00 Nasal Cannula 2.00 10/08/17 16:00 98.4 89 20 134/84 (101) 97 10/08/17 12:00 98.1 85 22 129/82 (98) 95 Result Diagram: 10/08/17 1415 10/09/17 0515 Other Results Laboratory Tests Test 10/07/17 16:05 10/07/17 16:45 10/07/17 22:00 10/08/17 12:30 White Blood Count 10.3 TH/MM3 Red Blood Count 4.46 MIL/MM3 Hemoglobin 13.4 GM/DL Hematocrit 40.8 % Mean Corpuscular Volume 91.4 FL Mean Corpuscular Hemoglobin 30.2 PG Mean Corpuscular Hemoglobin Concent 33.0 % Red Cell Distribution Width 12.4 % Platelet Count 259 TH/MM3 Mean Platelet Volume 8.3 FL Neutrophils (%) (Auto) 81.2 % Lymphocytes (%) (Auto) 11.4 % Monocytes (%) (Auto) 6.3 % Eosinophils (%) (Auto) 0.3 % Basophils (%) (Auto) 0.8 % Neutrophils # (Auto) 8.4 TH/MM3 Lymphocytes # (Auto) 1.2 TH/MM3 Monocytes # (Auto) 0.6 TH/MM3 Eosinophils # (Auto) 0.0 TH/MM3 Basophils # (Auto) 0.1 TH/MM3 CBC Comment DIFF FINAL Differential Comment Blood Urea Nitrogen 40 MG/DL Creatinine 1.60 MG/DL Random Glucose 175 MG/DL Total Protein 6.5 GM/DL Albumin 3.0 GM/DL Calcium Level 12.3 MG/DL Magnesium Level 1.7 MG/DL Alkaline Phosphatase 97 U/L Aspartate Amino Transf (AST/SGOT) 30 U/L Alanine Aminotransferase (ALT/SGPT) 21 U/L Total Bilirubin 0.2 MG/DL Sodium Level 135 MEQ/L Potassium Level 4.4 MEQ/L Chloride Level 100 MEQ/L Carbon Dioxide Level 26.0 MEQ/L Anion Gap 9 MEQ/L Estimat Glomerular Filtration Rate 31 ML/MIN Protein Corrected Calcium 12.9 MG/DL Troponin I 0.87 NG/ML 0.77 NG/ML Thyroid Stimulating Hormone 3rd Gen 3.100 uIU/ML Urine Collection Type CATH Urine Color YELLOW Urine Turbidity CLEAR Urine pH 6.0 Urine Specific [place] 1.012 Urine Protein NEG mg/dL Urine Glucose (UA) NEG mg/dL Urine Ketones NEG mg/dL Urine Occult Blood NEG Urine Nitrite NEG Urine Bilirubin NEG Urine Leukocyte Esterase NEG Urine WBC 0-2 /hpf Urine Squamous Epithelial Cells 0-5 /hpf Urine Transitional Epithelial Cells 6-8 /hpf Urine Amorphous Sediment FEW Microscopic Urinalysis Comment CATH-CULT NOT IND Urine Collection Time 1645 Stool C. difficile Toxin (PCR) NEGATIVE Stl C. difficile Toxin Epiderm 027 PRESUMPTIVE NEGATIVE Test 10/08/17 14:15 10/08/17 21:50 10/09/17 05:15 White Blood Count 8.0 TH/MM3 Red Blood Count 4.12 MIL/MM3 Hemoglobin 12.9 GM/DL Hematocrit 38.4 % Mean Corpuscular Volume 93.0 FL Mean Corpuscular Hemoglobin 31.2 PG Mean Corpuscular Hemoglobin Concent 33.5 % Red Cell Distribution Width 13.4 % Platelet Count 231 TH/MM3 Mean Platelet Volume 8.9 FL Neutrophils (%) (Auto) 72.6 % Lymphocytes (%) (Auto) 18.0 % Monocytes (%) (Auto) 7.5 % Eosinophils (%) (Auto) 1.3 % Basophils (%) (Auto) 0.6 % Neutrophils # (Auto) 5.8 TH/MM3 Lymphocytes # (Auto) 1.4 TH/MM3 Monocytes # (Auto) 0.6 TH/MM3 Eosinophils # (Auto) 0.1 TH/MM3 Basophils # (Auto) 0.0 TH/MM3 CBC Comment DIFF FINAL Differential Comment Blood Urea Nitrogen 19 MG/DL 17 MG/DL Creatinine 1.09 MG/DL 0.96 MG/DL Random Glucose 86 MG/DL 81 MG/DL Total Protein 5.9 GM/DL Albumin 2.8 GM/DL Calcium Level 11.1 MG/DL 11.2 MG/DL Alkaline Phosphatase 90 U/L Aspartate Amino Transf (AST/SGOT) 48 U/L Alanine Aminotransferase (ALT/SGPT) 21 U/L Total Bilirubin 0.4 MG/DL Sodium Level 142 MEQ/L 141 MEQ/L Potassium Level 5.9 MEQ/L 4.2 MEQ/L 5.2 MEQ/L Chloride Level 113 MEQ/L 113 MEQ/L Carbon Dioxide Level 22.9 MEQ/L 21.8 MEQ/L Anion Gap 6 MEQ/L 6 MEQ/L Estimat Glomerular Filtration Rate 48 ML/MIN 55 ML/MIN Troponin I 0.68 NG/ML Imaging Last [address] 10/07/17 1603 Signed Impressions: Service Date/Time: Saturday, October 07, 2017 18:07 - CONCLUSION: No acute intracranial abnormality. Chronic white matter changes and mild sinus disease. Yasir Sarmiento MD Abdomen/Pelvis CT 10/07/17 0000 Signed Impressions: Service Date/Time: Saturday, October 07, 2017 18:10 - CONCLUSION: 1. CT findings suggest mild left-sided colitis in the proper clinical setting, presumably infectious or inflammatory. No abscess, perforation or obstruction. 2. Large hiatal hernia. Yasir Sarmiento MD Objective Remarks General: Lethargic, NAD Chest: CTA Cardiac: Regular Abd: +BS, soft, nondistended Ext: No edema A/P Problem List: (1) Delirium ICD Codes: R41.0 - Disorientation, unspecified Status: Acute Plan: - Pt is an 86yo female with HTN, DM, HLD who presents to the ED with c/o decline in mental status and physical conditioning in the last 2 weeks. Daughter said onset seemed sudden and she is not acting like herself. Pt was refusing to eat or drink or walk. 1. Acute delirium/general weakness/hypotension. - Cont. gentle IVF - BUN/Cr improving today - PT evaluation - Pt lethargic today but received IV Ativan last night, will re-evaluate this afternoon - Stop IV Ativan 2. Hypercalcemia - Monitor labs - Recheck protein corrected calcium 3. Dehydration - Pt is on gentle IVF 4. Elevated troponin likely related to YOLY/dehydration - Pt evaluated by cardiology on 10/08 - [place] that the trop elevation likely due to CKD - No further workup felt to be necessary 5. Left sided colitis on CT - Abx initiated in ED for colitis, there were continued at admission. - Stool for C. diff is negative 6. YOLY ?dehydration vs recent Bactrim use - Improving 7. DM - NovoLog SSI Anticipate d/c to SNF possible tomorrow (2) YOLY (acute kidney injury) ICD Codes: N17.9 - Acute kidney failure, unspecified Status: Acute (3) Dehydration ICD Codes: E86.0 - Dehydration Status: Acute (4) Elevated troponin ICD Codes: R74.8 - Abnormal levels of other serum enzymes Status: Acute (5) Hypercalcemia ICD Codes: E83.52 - Hypercalcemia Status: Acute (6) Colitis ICD Codes: K52.9 - Noninfective gastroenteritis and colitis, unspecified Status: Acute (7) Diabetes ICD Codes: E11.9 - Type 2 diabetes mellitus without complications Status: Chronic Assessment and Plan Patient examined. Assessment and plan formulated with Linda Polanco PA-C. I agree with the above. Linda Polanco Oct 09, 2017 08:54 Silver Garcia DO Oct 12, 2017 14:23
[2017-10-09] MEDS: SODIUM CHLORIDE 0.9% FLUSH 10 ML FLUSH IV FLUSH SCH ×2 (09:00→21:39)
[2017-10-09] MEDS: ASPIRIN 81 MG CHEW TAB PO SCH (09:00)
[2017-10-09] MEDS: TIMOLOL MALEATE 0.25% OPHT SOLN 5 ML BTL EACH EYE SCH ×2 (09:00→21:00)
--- NOTE | 2017-10-09 15:19 | ECHRPT ---
Indication: cp CONCLUSIONS Normal left ventricular size. Mild concentric left ventricular hypertrophy. The left ventricular systolic function is low normal with an estimated ejection fraction in the rang e of 50- 55%. [id number] mitral valve regurgitation. There is mild tricuspid valve regurgitation. The estimated pulmonary arterial pressure is _28_ mmHg. The pulmonary valve is not well visualized. BP: / HR: Rhythm: MEASUREMENTS (Male / Female) Normal Values Technical Quality:Technically difficult study 2D ECHO LV Diastolic Diameter PLAX 3.6 cm 4.2 - 5.9 / 3.9 - 5.3 cm LV Systolic Diameter PLAX 2.9 cm IVS Diastolic Thickness 1.8 cm 0.6 - 1.0 / 0.6 - 0.9 cm LVPW Diastolic Thickness 1.4 cm 0.6 - 1.0 / 0.6 - 0.9 cm LV Relative Wall Thickness 0.9 RV Internal Dim ED PLAX 2.4 cm M-MODE Aortic Root Diameter MM 3.5 cm LA Systolic Diameter MM 3.5 cm LA Ao Ratio MM 1.0 AV Cusp Separation MM 2.1 cm DOPPLER LV E' Lateral Velocity 10.3 cm/s LV E' Septal Velocity 6.6 cm/s FINDINGS LEFT VENTRICLE Normal left ventricular size. Mild concentric left ventricular hypertrophy. The left ventricular systolic function is low normal with an estimated ejection fraction in the rang e of 50- 55%. RIGHT VENTRICLE Normal right ventricular size and systolic function. LEFT ATRIUM The left atrial size is normal. RIGHT ATRIUM The right atrial size is normal. ATRIAL SEPTUM Normal atrial septal thickness without atrial level shunting by limited color doppler interrogation. AORTA The aortic root and proximal ascending aorta are normal in size on limited imaging. MITRAL VALVE Structurally normal mitral valve. [id number]-kh-[id number] mitral valve regurgitation. AORTIC VALVE Trileaflet aortic valve. No aortic valve stenosis or regurgitation. TRICUSPID VALVE Structurally normal tricuspid valve. There is mild tricuspid valve regurgitation. The estimated pulmonary arterial pressure is _28_ mmHg. PULMONARY VALVE The pulmonary valve is not well visualized. VESSELS The inferior vena cava is normal in size. PERICARDIUM No pericardial effusion. Wyatt Pfeiffer MD, FACC (Electronically Signed) Final Date:09 October 2017 15:17
--- NOTE | 2017-10-09 15:57 | RADRPT ---
EXAM DATE/TIME: 10/09/2017 14:38 [facility] COMPARISON: No previous studies available for comparison. INDICATIONS : Neck pain. MEDICAL HISTORY : Cardiovascular disease. Hypercholesterolemia. Hypertension.CVA, Glaucoma, SURGICAL HISTORY : None. ENCOUNTER: Initial ACUITY: 1 day PAIN SCORE: Non-responsive. LOCATION: Neck. FINDINGS: Two projection examination was performed. There is minimal anterolisthesis C3 on C4 and C4 and C5. De generative changes greatest at C5-C7.. Vertebral body height is maintained. The disc spaces are jaycee ntained. The prevertebral soft tissues are of normal thickness. The atlanto-axial articulation is i ntact. CONCLUSION: Degenerative changes as described above. Yunier Pandya MD on October 09, 2017 at 15:54 Board Certified Radiologist. This report was verified electronically.
--- NOTE | 2017-10-09 15:58 | RADRPT ---
EXAM DATE/TIME: 10/09/2017 14:48 [facility] COMPARISON: No previous studies available for comparison. INDICATIONS : Upper back pain. MEDICAL HISTORY : Cardiovascular disease. Hypercholesterolemia. Hypertension.CVA, Glaucoma, SURGICAL HISTORY : None. ENCOUNTER: Initial ACUITY: 1 day PAIN SCORE: Non-responsive. LOCATION: Upper back. FINDINGS: There is dextroscoliosis upper thoracic spine and levoscoliosis lower thoracolumbar junction. Advance d multilevel. Osteopenia. Vertebral body height is maintained. No evidence of fracture or subluxati on. Pedicles are intact at all levels. The paravertebral reflections are not thickened. CONCLUSION: Scoliosis and degenerative changes. Osteopenia. Yunier Pandya MD on October 09, 2017 at 15:55 Board Certified Radiologist. This report was verified electronically.
[2017-10-09 20:13] LABS: TOTAL PROTEIN 6.3 GM/DL (6.4-8.2)
[2017-10-09 20:17] LABS: CALCIUM 11.6 MG/DL (8.5-10.1)
[2017-10-09] MEDS: CIPROFLOXACIN 400 MG PREMIX 200 ML IV SCH (21:38)
[2017-10-09] MEDS: PRAVASTATIN SOD 80 MG TAB PO SCH (21:39)
[2017-10-09] MEDS: PANTOPRAZOLE SODIUM 40 MG VIAL IV PUSH SCH (21:39)
[2017-10-10] VITALS (20 sets, daily range): BP systolic 123–145; BP diastolic 77–89; PULSE 66–92; RESP 16–20; TEMP 97.5–98.9; O2SAT 96–100
[2017-10-10 06:34] LABS: AUTOMATED NEUTROPHIL # 3.9 TH/MM3 (1.8-7.7); BASOPHIL # 0.1 TH/MM3 (0-0.2); BASOPHIL % 1.2 % (0.0-2.0); EOSINOPHIL # 0.2 TH/MM3 (0-0.4); EOSINOPHIL % 3.7 % (0.0-4.0); HEMATOCRIT 35.5 % (35.0-46.0); LYMPH % 24.3 % (9.0-44.0); LYMPHOCYTE # 1.5 TH/MM3 (1.0-4.8); MEAN CELL VOLUME 92.4 FL (80.0-100.0); MEAN CORPUSCULAR HEMOGLOBIN 31.2 PG (27.0-34.0); MEAN CORPUSCULAR HGB CONC 33.8 % (32.0-36.0); MEAN PLATELET VOLUME 7.8 FL (7.0-11.0); MONO % 6.9 % (0.0-8.0); MONOCYTE # 0.4 TH/MM3 (0-0.9); NEUT % 63.9 % (16.0-70.0); PLATELET COUNT 270 TH/MM3 (150-450); RED BLOOD COUNT 3.84 MIL/MM3 (4.00-5.30); RED CELL DISTRIBUTION WIDTH 13.4 % (11.6-17.2); WHITE BLOOD COUNT 6.1 TH/MM3 (4.0-11.0)
[2017-10-10 07:03] LABS: BICARBONATE 23.8 MEQ/L (21.0-32.0); CALCIUM 11.3 MG/DL (8.5-10.1); CREATININE 0.91 MG/DL (0.50-1.00); MAGNESIUM 1.4 MG/DL (1.5-2.5)
[2017-10-10] MEDS: INSULIN ASPART SUPPLEMENTAL SCALE SQ SCH ×3 (08:00→17:00)
[2017-10-10] MEDS: SODIUM CHLORIDE 0.9% FLUSH 10 ML FLUSH IV FLUSH SCH (09:34)
[2017-10-10] MEDS: ASPIRIN 81 MG CHEW TAB PO SCH (09:34)
--- NOTE | 2017-10-10 09:54 | HHI.PR ---
Objective Vitals Vital Signs Date Time Temp Pulse Resp B/P (MAP) Pulse Ox O2 Delivery O2 Flow Rate FiO2 10/10/17 07:30 97.5 92 20 125/80 (95) 96 10/10/17 07:00 70 10/10/17 06:00 73 10/10/17 05:00 75 10/10/17 04:00 98.5 80 16 123/82 (96) 96 10/10/17 04:00 80 10/10/17 03:00 80 10/10/17 02:00 78 10/10/17 01:00 66 10/10/17 00:00 98.8 72 18 124/83 (97) 97 10/10/17 00:00 72 10/09/17 22:27 85 10/09/17 21:00 81 10/09/17 21:00 98.7 81 16 132/72 (92) 97 10/09/17 20:00 80 10/09/17 19:00 98 Room Air 10/09/17 19:00 78 10/09/17 18:01 104 10/09/17 17:00 88 10/09/17 16:10 98.7 86 19 125/90 (102) 97 10/09/17 16:06 80 10/09/17 15:00 77 10/09/17 14:00 94 10/09/17 13:00 78 10/09/17 12:00 90 10/09/17 12:00 97.2 85 19 124/78 (93) 100 10/09/17 11:00 83 10/09/17 10:00 86 Result Diagram: 10/10/17 0505 10/10/17 0505 Other Results Laboratory Tests Test 10/08/17 12:30 10/08/17 14:15 10/08/17 21:50 10/09/17 05:15 Stool C. difficile Toxin (PCR) NEGATIVE Stl C. difficile Toxin Epiderm 027 PRESUMPTIVE NEGATIVE White Blood Count 8.0 TH/MM3 Red Blood Count 4.12 MIL/MM3 Hemoglobin 12.9 GM/DL Hematocrit 38.4 % Mean Corpuscular Volume 93.0 FL Mean Corpuscular Hemoglobin 31.2 PG Mean Corpuscular Hemoglobin Concent 33.5 % Red Cell Distribution Width 13.4 % Platelet Count 231 TH/MM3 Mean Platelet Volume 8.9 FL Neutrophils (%) (Auto) 72.6 % Lymphocytes (%) (Auto) 18.0 % Monocytes (%) (Auto) 7.5 % Eosinophils (%) (Auto) 1.3 % Basophils (%) (Auto) 0.6 % Neutrophils # (Auto) 5.8 TH/MM3 Lymphocytes # (Auto) 1.4 TH/MM3 Monocytes # (Auto) 0.6 TH/MM3 Eosinophils # (Auto) 0.1 TH/MM3 Basophils # (Auto) 0.0 TH/MM3 CBC Comment DIFF FINAL Differential Comment Blood Urea Nitrogen 19 MG/DL 17 MG/DL Creatinine 1.09 MG/DL 0.96 MG/DL Random Glucose 86 MG/DL 81 MG/DL Total Protein 5.9 GM/DL Albumin 2.8 GM/DL Calcium Level 11.1 MG/DL 11.2 MG/DL Alkaline Phosphatase 90 U/L Aspartate Amino Transf (AST/SGOT) 48 U/L Alanine Aminotransferase (ALT/SGPT) 21 U/L Total Bilirubin 0.4 MG/DL Sodium Level 142 MEQ/L 141 MEQ/L Potassium Level 5.9 MEQ/L 4.2 MEQ/L 5.2 MEQ/L Chloride Level 113 MEQ/L 113 MEQ/L Carbon Dioxide Level 22.9 MEQ/L 21.8 MEQ/L Anion Gap 6 MEQ/L 6 MEQ/L Estimat Glomerular Filtration Rate 48 ML/MIN 55 ML/MIN Troponin I 0.68 NG/ML Test 10/09/17 18:40 10/10/17 05:05 Potassium Level 4.7 MEQ/L 4.3 MEQ/L Calcium Level 11.6 MG/DL 11.3 MG/DL Protein Corrected Calcium MG/DL Total Protein 6.3 GM/DL White Blood Count 6.1 TH/MM3 Red Blood Count 3.84 MIL/MM3 Hemoglobin 12.0 GM/DL Hematocrit 35.5 % Mean Corpuscular Volume 92.4 FL Mean Corpuscular Hemoglobin 31.2 PG Mean Corpuscular Hemoglobin Concent 33.8 % Red Cell Distribution Width 13.4 % Platelet Count 270 TH/MM3 Mean Platelet Volume 7.8 FL Neutrophils (%) (Auto) 63.9 % Lymphocytes (%) (Auto) 24.3 % Monocytes (%) (Auto) 6.9 % Eosinophils (%) (Auto) 3.7 % Basophils (%) (Auto) 1.2 % Neutrophils # (Auto) 3.9 TH/MM3 Lymphocytes # (Auto) 1.5 TH/MM3 Monocytes # (Auto) 0.4 TH/MM3 Eosinophils # (Auto) 0.2 TH/MM3 Basophils # (Auto) 0.1 TH/MM3 CBC Comment DIFF FINAL Differential Comment Blood Urea Nitrogen 11 MG/DL Creatinine 0.91 MG/DL Random Glucose 97 MG/DL Magnesium Level 1.4 MG/DL Sodium Level 144 MEQ/L Chloride Level 114 MEQ/L Carbon Dioxide Level 23.8 MEQ/L Anion Gap 6 MEQ/L Estimat Glomerular Filtration Rate 59 ML/MIN Imaging Last [address] 10/07/17 1603 Signed Impressions: Service Date/Time: Saturday, October 07, 2017 18:07 - CONCLUSION: No acute intracranial abnormality. Chronic white matter changes and mild sinus disease. Yasir Sarmiento MD Abdomen/Pelvis CT 10/07/17 0000 Signed Impressions: Service Date/Time: Saturday, October 07, 2017 18:10 - CONCLUSION: 1. CT findings suggest mild left-sided colitis in the proper clinical setting, presumably infectious or inflammatory. No abscess, perforation or obstruction. 2. Large hiatal hernia. Yasir Sarmiento MD Objective Remarks General: Lethargic, NAD Chest: CTA Cardiac: Regular Abd: +BS, soft, nondistended Ext: No edema A/P Problem List: (1) Delirium ICD Codes: R41.0 - Disorientation, unspecified Status: Acute Plan: - Pt is an 86yo female with HTN, DM, HLD who presents to the ED with c/o decline in mental status and physical conditioning in the last 2 weeks. Daughter said onset seemed sudden and she is not acting like herself. Pt was refusing to eat or drink or walk. 1. Acute delirium/general weakness/hypotension. - Cont. gentle IVF - BUN/Cr improving - PT recommending SNF - Pt was more lethargic on 10/09 but received IV Ativan the previous night, She did wake up later in the morning on 10/09 and has been stable since that time. - IV Ativan stopped on 10/09 - Discussion with pt and family on 10/09 noted that the pt had been in a bit of a decline cognitively recently and they do not want to be aggressive with further workup - They had mentioned she had complained of some back and neck pain recently and had fallen at home a few times recently. Cervical and Thoracic spine Xrays noted only degenerative changes 2. Hypercalcemia - Monitor labs 3. Dehydration - Pt is on gentle IVF 4. Elevated troponin likely related to YOLY/dehydration - Pt evaluated by cardiology on 10/08 - [place] that the trop elevation likely due to CKD - No further workup felt to be necessary - The case was discussed at length with the pts daughter and grand-son on and the daughter does not want any invasive evaluation or stress testing performed. 5. Left sided colitis on CT - Abx initiated in ED for colitis, there were continued at admission. - Stool for C. diff is negative 6. YOLY ?dehydration vs recent Bactrim use - Improving 7. DM - NovoLog SSI Anticipate d/c to SNF possible tomorrow (2) YOLY (acute kidney injury) ICD Codes: N17.9 - Acute kidney failure, unspecified Status: Acute (3) Dehydration ICD Codes: E86.0 - Dehydration Status: Acute (4) Elevated troponin ICD Codes: R74.8 - Abnormal levels of other serum enzymes Status: Acute (5) Hypercalcemia ICD Codes: E83.52 - Hypercalcemia Status: Acute (6) Colitis ICD Codes: K52.9 - Noninfective gastroenteritis and colitis, unspecified Status: Acute (7) Diabetes ICD Codes: E11.9 - Type 2 diabetes mellitus without complications Status: Chronic Linda Polanco Oct 10, 2017 09:54
[2017-10-10] MEDS: MAGNESIUM SULFATE 1 GM PREMIX 100 ML IV SCH ×2 (12:16→13:30)
[2017-10-10] MEDS: TIMOLOL MALEATE 0.25% OPHT SOLN 5 ML BTL EACH EYE SCH (12:37)
--- NOTE | 2017-10-10 14:37 | HHI.DCPOC ---
Discharge Care Plan Diagnosis: (1) Delirium (2) YOLY (acute kidney injury) (3) Type II diabetes mellitus, uncontrolled (4) Dehydration (5) Colitis (6) Elevated troponin (7) Hypercalcemia (8) Hypertension (9) Hyperlipidemia Goals to Promote Your Health * To prevent worsening of your condition and complications * To maintain your health at the optimal level Directions to Meet Your Goals Take your medications as prescribed Follow your dietary instruction Follow activity as directed Keep your appointments as scheduled Take your immunizations and boosters as scheduled If your symptoms worsen call your PCP, if no PCP go to Urgent Care Center or Emergency Room Smoking is Dangerous to Your Health. Avoid second hand smoke Call the 24-hour hour crisis hotline for domestic abuse at Linda Polanco Oct 10, 2017 14:37 Silver Garcia DO Oct 12, 2017 14:24
--- NOTE | 2017-10-10 14:57 | HHI.DS ---
Discharge Summary Admission Date Oct 07, 2017 at 19:21 Discharge Date: Oct 10, 2017 Admitting Diagnosis Elevated troponin, hypercalcemia (1) Delirium Diagnosis: Principal ICD Codes: R41.0 - Disorientation, unspecified Status: Acute (2) YOLY (acute kidney injury) Diagnosis: Secondary ICD Codes: N17.9 - Acute kidney failure, unspecified Status: Acute (3) Dehydration Diagnosis: Secondary ICD Codes: E86.0 - Dehydration Status: Acute (4) Elevated troponin Diagnosis: Secondary ICD Codes: R74.8 - Abnormal levels of other serum enzymes Status: Acute (5) Hypercalcemia Diagnosis: Secondary ICD Codes: E83.52 - Hypercalcemia Status: Acute (6) Colitis Diagnosis: Secondary ICD Codes: K52.9 - Noninfective gastroenteritis and colitis, unspecified Status: Acute (7) Diabetes Diagnosis: Secondary ICD Codes: E11.9 - Type 2 diabetes mellitus without complications Status: Chronic Brief History 86yo F with PMH of HTN, DM, HLD presents to the ED with c/o decline in mental status and physical shape in the last 2 weeks. Daughter said onset seemed sudden and she is not acting like herself. Pt often refuses to eat or drink or walk. Pt seems catatonic and answers questions sometimes. Daughter does say that approx 2 weeks ago did complain of mid back pain,denies chest pain ,SOB . Pt was seen at primary care physician's office on 10/04/17 and pt was started on bactrim as urine had a strong smell and send off to lab for culture. Pt also had diarrhea today. Daughter said she found her on the floor today. In er had ct abd showed mild colitis and did have evidence significant dehydration with increase calcium and bun /cr but also had positive troponin level and did have positive guiac . Will be admitted to [facility] cardiac follow up may also need GI. CBC/BMP: 10/10/17 0505 10/10/17 0505 Significant Findings Laboratory Tests Test 10/07/17 16:05 10/07/17 16:45 10/07/17 22:00 10/08/17 12:30 Neutrophils (%) (Auto) 81.2 % (16.0-70.0) Neutrophils # (Auto) 8.4 TH/MM3 (1.8-7.7) Blood Urea Nitrogen 40 MG/DL (7-18) Creatinine 1.60 MG/DL (0.50-1.00) Random Glucose 175 MG/DL (74-106) Albumin 3.0 GM/DL (3.4-5.0) Calcium Level 12.3 MG/DL (8.5-10.1) Sodium Level 135 MEQ/L (136-145) Estimat Glomerular Filtration Rate 31 ML/MIN (>89) Protein Corrected Calcium 12.9 MG/DL (8.5-10.1) Troponin I 0.87 NG/ML (0.02-0.05) 0.77 NG/ML (0.02-0.05) Test 10/08/17 14:15 10/08/17 21:50 10/09/17 05:15 10/09/17 18:40 Neutrophils (%) (Auto) 72.6 % (16.0-70.0) Blood Urea Nitrogen 19 MG/DL (7-18) Creatinine 1.09 MG/DL (0.50-1.00) Total Protein 5.9 GM/DL (6.4-8.2) 6.3 GM/DL (6.4-8.2) Albumin 2.8 GM/DL (3.4-5.0) Calcium Level 11.1 MG/DL (8.5-10.1) 11.2 MG/DL (8.5-10.1) 11.6 MG/DL (8.5-10.1) Aspartate Amino Transf (AST/SGOT) 48 U/L (15-37) Potassium Level 5.9 MEQ/L (3.5-5.1) 5.2 MEQ/L (3.5-5.1) Chloride Level 113 MEQ/L (98-107) 113 MEQ/L (98-107) Estimat Glomerular Filtration Rate 48 ML/MIN (>89) 55 ML/MIN (>89) Troponin I 0.68 NG/ML (0.02-0.05) Test 10/10/17 05:05 Red Blood Count 3.84 MIL/MM3 (4.00-5.30) Calcium Level 11.3 MG/DL (8.5-10.1) Magnesium Level 1.4 MG/DL (1.5-2.5) Chloride Level 114 MEQ/L (98-107) Estimat Glomerular Filtration Rate 59 ML/MIN (>89) Imaging Last Impressions Thoracic Spine X-Ray 10/09/17 0000 Signed Impressions: Service Date/Time: Monday, October 09, 2017 14:48 - CONCLUSION: Scoliosis and degenerative changes. Osteopenia. Yunier Pandya MD Cervical Spine X-Ray 10/09/17 0000 Signed Impressions: Service Date/Time: Monday, October 09, 2017 14:38 - CONCLUSION: Degenerative changes as described above. Yunier Pandya MD Head CT 10/07/17 1603 Signed Impressions: Service Date/Time: Saturday, October 07, 2017 18:07 - CONCLUSION: No acute intracranial abnormality. Chronic white matter changes and mild sinus disease. Yasir Sarmiento MD Abdomen/Pelvis CT 10/07/17 0000 Signed Impressions: Service Date/Time: Saturday, October 07, 2017 18:10 - CONCLUSION: 1. CT findings suggest mild left-sided colitis in the proper clinical setting, presumably infectious or inflammatory. No abscess, perforation or obstruction. 2. Large hiatal hernia. Yasir Sarmiento MD PE at Discharge General: NAD, awake, somewhat confused Chest: CTA Cardiac: Regular Abd: +BS, soft, nondistended Ext: No edema Hospital Course Pt is an 86yo female with HTN, DM, HLD who presents to the ED with c/o decline in mental status and physical conditioning in the last 2 weeks. Daughter said onset seemed sudden and she is not acting like herself. Pt was refusing to eat or drink or walk. She was admitted with acute delirium/general weakness/hypotension felt to be secondary to dehydration and YOLY. The YOLY was thought to be related possibly to dehydration vs recent Bactrim use. Pt was given gentle IVF and had noted improvement in her BUN/Cr. Pt was more lethargic on 10/09 but received IV Ativan the previous night, She did wake up later in the morning on 10/09 and has been stable since that time. IV Ativan stopped on 10/09. Discussion with pt and family on 10/09 noted that the pt had been in a bit of a decline cognitively recently and they do not want to be aggressive with further workup. They had mentioned she had complained of some back and neck pain recently and had fallen at home a few times recently. Cervical and Thoracic spine Xrays noted only degenerative changes Pt was noted to elevated troponin felt to likely related to YOLY/dehydration. Pt evaluated by cardiology on 10/08 and they felt that the trop elevation likely due to CKD. No further workup felt to be necessary. The case was discussed at length with the pts daughter and grand-son on 10/09/17 and the daughter does not want any invasive evaluation or stress testing performed. Pt had an incidental finding of left sided colitis on CT. Abx initiated in ED for colitis, there were continued at admission. Pt has not had any further diarrhea and denies any abdominal pain. Stool for C. diff is negative. We will not continue antibiotics upon discharge. Pt will need to be monitored while at rehab for any diarrhea. If she has any diarrhea or increased abd pain then her stool may need to be rechecked and/or referral to GI as an outpt. Pt will need to followup with her PCP, Dr. Soriano, 1 week after discharge from SNF. Pt Condition on Discharge: Stable Discharge Disposition: Discharge to SNF Discharge Instructions DIET: Follow Instructions for: Diabetic Diet Speech Therapy-Diet Recommends: Mechanical Soft Activities you can perform: Regular-No Restrictions Follow up Referrals: PCP Follow-up - [address] Soriano Continued Medications: Glipizide (Glipizide) 5 Mg Tab 5 MG PO DAILY for Blood Sugar Management, #30 TAB 0 Refills Take 30 minutes before a meal Metformin (Metformin) 500 Mg Tab 500 MG PO BIDPC for Blood Sugar Management, #60 TAB 0 Refills Simvastatin (Simvastatin) 40 Mg Tab 40 MG PO HS for Cholesterol Management, #30 TAB 0 Refills Discontinued Medications: Enalapril (Enalapril) 20 Mg Tab 20 MG PO DAILY, #30 TAB 0 Refills Sulfamethoxazole-Trimethoprim (Bactrim DS) 800-160 Mg Tab 1 TAB PO BID for Infection, TAB 0 Refills Additional Information Patient examined. Assessment and plan formulated with Linda Polanco PA-C. I agree with the above. Linda Polanco Oct 10, 2017 14:57 Silver Garcia DO Oct 12, 2017 14:24
== END 2017-10-10 19:58 | DRG 683 ==
LOC: PHED 15:11 → PHEDA 19:21 → HCIS 22:55
PROVIDERS: ADMIT Hospitalist; ATTEND Hospitalist
DX: N17.9 Acute kidney failure, unspecified (principal); K51.50 Left sided colitis without complications; I95.9 Hypotension, unspecified; J44.9 Chronic obstructive pulmonary disease, unspecified; E86.0 Dehydration; E11.9 Type 2 diabetes mellitus without complications; Z79.84 Long term (current) use of oral hypoglycemic drugs; E83.52 Hypercalcemia; R74.8 Abnormal levels of other serum enzymes; I12.9 Hypertensive chronic kidney disease with stage 1 through stage 4 chronic kidney disease, or unspecified chronic kidney disease; N18.9 Chronic kidney disease, unspecified; R41.0 Disorientation, unspecified; E78.5 Hyperlipidemia, unspecified; M19.90 Unspecified osteoarthritis, unspecified site; Z86.73 Personal history of transient ischemic attack (TIA), and cerebral infarction without residual deficits; K44.9 Diaphragmatic hernia without obstruction or gangrene; Z79.82 Long term (current) use of aspirin; M81.0 Age-related osteoporosis without current pathological fracture; Z85.820 Personal history of malignant melanoma of skin
CPT/HCPCS: 70450; 72040; 72072; 74177; 80048; 80053; 81001; 82948; 83735; 84132; 84155; 84443; 84484; 85025; 87493; 93005; 93306; 96360; 96361; C9113; J0744; J1815; J2060; J3475; J7030; Q9967